=== PATIENT | female | born 1990 | race Caucasian/White ===

== ENCOUNTER 2017-10-12 09:01 | Emergency (ER) | payer MEDICAID ==
--- NOTE | 2017-10-12 09:24 | ER Document Report ---
ED General - General Chief Complaint: Lower Abdominal Pain Stated Complaint: ABDOMINAL PAIN Time Seen by Provider: 10/12/17 09:21 TRAVEL OUTSIDE OF THE [place] IN LAST 30 DAYS: No - Related Data Allergies/Adverse Reactions: No Known Allergies Allergy (Verified 10/12/17 09:07) Past Medical History - Social History Family History: Reviewed & Not Pertinent Neurological Medical History: Reports: Hx Seizures - Most recent in 2008 Renal/ Medical History: Reports: Hx Kidney Stones - Immunizations Hx Diphtheria, Pertussis, Tetanus Vaccination: No Physical Exam - Vital signs Vitals: Temp Pulse Resp BP Pulse Ox 97.9 F 88 19 140/92 H 99 10/12/17 09:05 10/12/17 09:05 10/12/17 09:05 10/12/17 09:05 10/12/17 09:05 Course - Vital Signs Vital signs: Temp Pulse Resp BP Pulse Ox 97.9 F 88 19 140/92 H 99 10/12/17 09:05 10/12/17 09:05 10/12/17 09:05 10/12/17 09:05 10/12/17 09:05
[2017-10-12] MEDS ORDERED: KETOROLAC TROMETHAMINE 60 MG/2 ML SDV IM ONE (09:28)
--- NOTE | 2017-10-12 09:30 | ER Document Report ---
ED Medical Screen (RME) - General Chief Complaint: Lower Abdominal Pain Stated Complaint: ABDOMINAL PAIN Time Seen by Provider: 10/12/17 09:21 Notes: 27-year-old female complaining of 3 days of pain that started as right flank pain is now lower abdominal pain cramping in nature associated with nausea but denies any fevers or diarrhea. Thinks it felt like her previous kidney stones now she is not sure. Patient has an IUD. TRAVEL OUTSIDE OF THE [place] IN LAST 30 DAYS: No - Related Data Allergies/Adverse Reactions: No Known Allergies Allergy (Verified 10/12/17 09:07) Past Medical History - Social History Cigarette use (# per day): No Chew tobacco use (# tins/day): No Frequency of alcohol use: None Drug Abuse: None Neurological Medical History: Reports: Hx Seizures - Most recent in 2008 Renal/ Medical History: Reports: Hx Kidney Stones. Denies: Hx Peritoneal Dialysis - Immunizations Hx Diphtheria, Pertussis, Tetanus Vaccination: No Review of Systems - Review of Systems Constitutional: No symptoms reported Gastrointestinal: See HPI Genitourinary: See HPI Physical Exam - Vital signs Vitals: Temp Pulse Resp BP Pulse Ox 97.9 F 88 19 140/92 H 99 10/12/17 09:05 10/12/17 09:05 10/12/17 09:05 10/12/17 09:05 10/12/17 09:05 - Notes Notes: Abdominal mild right lower quadrant abdominal tenderness palpation Heart regular rate and rhythm no murmurs gallops or rubs Lungs clear to auscultation bilaterally. Course - Vital Signs Vital signs: Temp Pulse Resp BP Pulse Ox 97.9 F 88 19 140/92 H 99 10/12/17 09:05 10/12/17 09:05 10/12/17 09:05 10/12/17 09:05 10/12/17 09:05
[2017-10-12 10:02] LABS: ABSOLUTE EOSINOPHILS # (AUTO) 0.2 10^3/uL (0.0-0.6); ABSOLUTE LYMPHOCYTES (AUTO) 2.1 10^3/uL (0.5-4.7); ABSOLUTE MONOCYTES (AUTO) 0.7 10^3/uL (0.1-1.4); ABSOLUTE NEUT (AUTO) 5.3 10^3/uL (1.7-8.2); BASOPHILS % (AUTO) 0.5 % (0-2); EOSINOPHILS % (AUTO) 1.9 % (0-6); HEMATOCRIT 41.8 % (36.0-47.0); HEMOGLOBIN 14.8 g/dL (12.0-15.5); HGB HCT DIFFERENCE 2.6; LYMPHOCYTES % (AUTO) 24.7 % (13-45); MEAN CORPUSCULAR HEMOGLOBIN 32.8 pg (27.0-33.4); MEAN CORPUSCULAR HGB CONC 35.4 g/dL (32.0-36.0); MEAN CORPUSCULAR VOLUME 93 fl (80-97); MONOCYTES % (AUTO) 8.7 % (3-13); SEGMENTED NEUTROPHILS % (AUTO) 64.2 % (42-78); WHITE BLOOD COUNT 8.3 10^3/uL (4.0-10.5)
[2017-10-12 10:03] LABS: APPEARANCE,URINE CLOUDY; BILIRUBIN,URINE NEGATIVE (NEGATIVE); GLUCOSE, URINE NEGATIVE (NEGATIVE); KETONES,URINE NEGATIVE (NEGATIVE); LEUKOCYTE ESTERASE,URINE NEGATIVE (NEGATIVE); NITRITE,URINE NEGATIVE (NEGATIVE); PROTEIN,URINE 100 mg/dL (NEGATIVE); URINE SPECIFIC GRAVITY 1.032; UROBILINOGEN,URINE NEGATIVE mg/dL (<2.0)
[2017-10-12 10:27] LABS: ALANINE AMINOTRANSFERASE 40 U/L (9-52); ALBUMIN 4.4 g/dL (3.5-5.0); ALKALINE PHOSPHATASE 90 U/L (38-126); ANION GAP 14 (5-19); ASPARTATE AMINO TRANSFERASE 24 U/L (14-36); BILIRUBIN,DIRECT 0.3 mg/dL (0.0-0.4); BILIRUBIN,TOTAL 0.5 mg/dL (0.2-1.3); BLOOD UREA NITROGEN 11 mg/dL (7-20); CALCIUM 8.9 mg/dL (8.4-10.2); CARBON DIOXIDE 24 mmol/L (22-30); CHLORIDE 107 mmol/L (98-107); CREATININE RESULT 0.77 mg/dL (0.52-1.25); GLUCOSE 79 mg/dL (75-110); POTASSIUM 4.3 mmol/L (3.6-5.0); SODIUM 144.5 mmol/L (137-145); TOTAL PROTEIN 6.9 g/dL (6.3-8.2)
--- NOTE | 2017-10-12 11:22 | ER Document Report ---
ED GI/ - General Chief Complaint: Lower Abdominal Pain Stated Complaint: ABDOMINAL PAIN Time Seen by Provider: 10/12/17 09:21 Mode of Arrival: Ambulatory Information source: Patient Notes: 27-year-old female complaining of right flank pain for 3 days, sudden onset, severe, sharp, it radiated to her right lower quadrant and into her vagina recently. No vaginal discharge or odor. History of kidney stones most recently 5 mm January 2016 when she was 8 months . She was in the hospital for 3 days and she finally passed it on her own. No vaginal bleeding. No dysuria frequency or urgency. No fever or chills. There is microscopic blood in urine today. TRAVEL OUTSIDE OF THE [place] IN LAST 30 DAYS: No - Related Data Allergies/Adverse Reactions: No Known Allergies Allergy (Verified 10/12/17 09:07) Past Medical History - General Information source: Patient - Social History Smoking Status: Never Smoker Cigarette use (# per day): No Chew tobacco use (# tins/day): No Frequency of alcohol use: None Drug Abuse: None Lives with: Spouse/Significant other Family History: Reviewed & Not Pertinent Patient has suicidal ideation: No Patient has homicidal ideation: No Neurological Medical History: Reports: Hx Seizures - Most recent in 2008 Renal/ Medical History: Reports: Hx Kidney Stones. Denies: Hx Peritoneal Dialysis Surgical Hx: Negative - Immunizations Hx Diphtheria, Pertussis, Tetanus Vaccination: No Review of Systems - Review of Systems Constitutional: No symptoms reported EENT: No symptoms reported Cardiovascular: No symptoms reported Respiratory: No symptoms reported Gastrointestinal: No symptoms reported Genitourinary: See HPI Female Genitourinary: No symptoms reported Musculoskeletal: See HPI Skin: No symptoms reported Hematologic/Lymphatic: No symptoms reported Neurological/Psychological: No symptoms reported Physical Exam - Vital signs Vitals: Temp Pulse Resp BP Pulse Ox 97.9 F 88 19 140/92 H 99 10/12/17 09:05 10/12/17 09:05 10/12/17 09:05 10/12/17 09:05 10/12/17 09:05 Interpretation: Normal - General General appearance: Appears well, Alert - HEENT Head: Normocephalic, Atraumatic Eyes: Normal Pupils: PERRL Neck: Supple. No: Lymphadenopathy - Respiratory Respiratory status: No respiratory distress Chest status: Nontender Breath sounds: Normal Chest palpation: Normal - Cardiovascular Rhythm: Regular Heart sounds: Normal auscultation Murmur: No - Abdominal Inspection: Normal Distension: No distension Bowel sounds: Normal Tenderness: Tender - right pelvis Organomegaly: No organomegaly - Back Back: Normal, Nontender. No: CVA tenderness - Extremities General upper extremity: Normal inspection, Nontender, Normal color, Normal ROM , Normal temperature General lower extremity: Normal inspection, Nontender, Normal color, Normal ROM , Normal temperature, Normal weight bearing. No: Arvind's sign - Neurological Neuro grossly intact: Yes Cognition: Normal Orientation: AAOx4 [place] Coma Scale Eye Opening: Spontaneous [place] Coma Scale Verbal: Oriented [place] Coma Scale Motor: Obeys Commands [place] Coma Scale Total: 15 Speech: Normal Motor strength normal: LUE, RUE, LLE, RLE Sensory: Normal - Psychological Associated symptoms: Normal affect, Normal mood - Skin Skin Temperature: Warm Skin Moisture: Dry Skin Color: Normal Skin irregularity: negative: Rash Course - Re-evaluation Re-evalutation: 10/12/17 13:01 no hydronephrosis, no uti, tx as presumed uretal stone Brittney OK with that. - Vital Signs Vital signs: Temp Pulse Resp BP Pulse Ox 97.9 F 88 19 140/92 H 99 10/12/17 09:05 10/12/17 09:05 10/12/17 09:05 10/12/17 09:05 10/12/17 09:05 - Laboratory Result Diagrams: 10/12/17 09:35 10/12/17 09:35 Laboratory results interpreted by me: 10/12/17 09:35 Urine Protein 100 H Urine Blood LARGE H Discharge - Discharge Clinical Impression: Flank pain, RLQ/pelvis pain Hematuria Qualifiers: Hematuria type: unspecified type Qualified Code(s): R31.9 - Hematuria, unspecified Condition: Good Disposition: HOME, SELF-CARE Instructions: Abdominal Pain ([facility]), Toradol Injection ([facility]), Hematuria ([facility]), Kidney Stone ([facility]), Ibuprofen (General) ([facility]), Acetaminophen, Flomax ([facility]) Additional Instructions: plenty of fluids to er if worse see the urologist Please complete the patient satisfaction survey if you get one, and return it.. If you do not receive a survey, then you can go to the [facility] website, [email or web address] and place your comments about your very good care. Thank you very much. It was a pleasure being your medical provider today. Prescriptions: Ibuprofen [Motrin 800 mg Tablet] 800 mg PO Q8HP PRN #30 tablet PRN Reason: Tamsulosin HCl [Flomax 0.4 mg Cap.sr] 0.4 mg PO DAILY #6 cap.sr.24h Referrals: CESARIO LYNNE MD [[facility]] - Follow up as needed
--- NOTE | 2017-10-12 12:19 | RADIOLOGY REPORT (SQ) ---
EXAM DESCRIPTION: U/S RETROPERITON (RENAL/AORTA) COMPLETED DATE/TIME: 10/12/2017 12:07 pm REASON FOR STUDY: ? hydro , hx stones COMPARISON: [id number] Abdominal ultrasound 02/27/2016, 02/25/2016 TECHNIQUE: Dynamic and static grayscale images acquired of the kidneys and bladder and recorded on P ACS. Additional selected color Doppler and spectral images recorded. LIMITATIONS: None. FINDINGS: RIGHT KIDNEY: Normal size, 13.6 cm in length. Normal echogenicity. No solid or suspicious masses. Very mild prominence of the renal pelvis without talus seal dilatation, likely an extrarenal pelvis. No significant hydronephrosis. No calcifications. LEFT KIDNEY: Normal size, 12.8 cm in length. Normal echogenicity. No solid or suspicious masses. No hydronephrosis. No calcifications. BLADDER: No masses. OTHER FINDINGS: No other significant finding. IMPRESSION: Hydronephrosis seen during February 2016 has resolved. There is a borderline prominent extrarenal pelvis on the right. No blunting of the calices. Bilateral renal ultrasound and bladder ultrasound is otherwise unremarkable TECHNICAL DOCUMENTATION: JOB ID: [id number]- All Rights Reserved
[2017-10-12] MEDS ORDERED: TAMSULOSIN HCL 0.4 MG CAP.SR.24H PO ONE (12:59)
[2017-10-12 13:20] VITALS: BP 124/82
== END 2017-10-12 13:22 | disposition home or self-care (01) ==
LOC: ER 09:01
DX: R10.31 Right lower quadrant pain (principal); R10.2 Pelvic and perineal pain; R31.9 Hematuria, unspecified
CPT/HCPCS: 99284; 96372; 36415; 87086; 85025; 81025; 80053; 81001; 76770; J1885

== ENCOUNTER 2017-10-13 14:27 | Emergency (ER) | payer SELFPAY ==
[2017-10-13] MEDS ORDERED: ONDANSETRON HCL INJ/PF 4 MG/2 ML SDV IV ONE (14:46)
[2017-10-13] MEDS ORDERED: KETOROLAC TROMETHAMINE INJ/PF 30 MG/1 ML SDV IV ONE (14:46)
[2017-10-13] MEDS ORDERED: NORMAL SALINE 1000 ML 1,000 ML IV ONE (14:46)
--- NOTE | 2017-10-13 14:48 | ER Document Report ---
ED Medical Screen (RME) - General Chief Complaint: Flank Pain Stated Complaint: ABDOMINAL PAIN Time Seen by Provider: 10/13/17 14:46 Mode of Arrival: Wheelchair Information source: Patient TRAVEL OUTSIDE OF THE [place] IN LAST 30 DAYS: No - HPI Patient complains to provider of: flank pain Onset: Other - Pt with h/o kidney stones with c/o R flank pain for the past 3-4 days with N/V - Related Data Allergies/Adverse Reactions: No Known Allergies Allergy (Verified 10/13/17 14:35) Past Medical History - Social History Chew tobacco use (# tins/day): No Frequency of alcohol use: None Drug Abuse: None Neurological Medical History: Reports: Hx Seizures - Most recent in 2008 Renal/ Medical History: Reports: Hx Kidney Stones. Denies: Hx Peritoneal Dialysis - Immunizations Hx Diphtheria, Pertussis, Tetanus Vaccination: No Physical Exam - Vital signs Vitals: Temp Pulse Resp BP Pulse Ox 97.4 F 85 20 168/99 H 97 10/13/17 14:36 10/13/17 14:36 10/13/17 14:36 10/13/17 14:36 10/13/17 14:36 Course - Vital Signs Vital signs: Temp Pulse Resp BP Pulse Ox 97.4 F 85 20 168/99 H 97 10/13/17 14:36 10/13/17 14:36 10/13/17 14:36 10/13/17 14:36 10/13/17 14:36
--- NOTE | 2017-10-13 16:18 | RADIOLOGY REPORT (SQ) ---
EXAM DESCRIPTION: CT LTD RENAL STONE PROTOCOL ON COMPLETED DATE/TIME: 10/13/2017 3:49 pm REASON FOR STUDY: R flank pain COMPARISON: None. TECHNIQUE: CT scan of the abdomen and pelvis performed without intravenous or oral contrast. Images reviewed with lung, soft tissue, and bone windows. Reconstructed coronal and sagittal MPR images revi ewed. All images stored on PACS. All CT scanners at this facility use dose modulation, iterative reconstruction, and/or weight based d osing when appropriate to reduce radiation dose to as low as reasonably achievable (ALARA). [facility]: Dose Right [facility]: CareDose [facility]: Dose Right [facility]: Teradose 4D [facility]: Smart [employer] RADIATION DOSE: Up-to-date CT equipment and radiation dose reduction techniques were employed. CTDIv ol: 7.8 mGy. DLP: 422 mGy-cm.mGy. LIMITATIONS: None. FINDINGS: LOWER CHEST: No significant findings. No nodules or infiltrates. NON-CONTRASTED LIVER, SPLEEN, ADRENALS: Evaluation limited by lack of IV contrast. No identified sign ificant masses. PANCREAS: No masses. No peripancreatic inflammatory changes. GALLBLADDER: No identified stones by CT criteria. No inflammatory changes to suggest cholecystitis. RIGHT KIDNEY AND URETER: No suspicious masses. Assessment limited by lack of IV contrast. Small yonny yceal calculi. 5 mm calculus in the distal ureter at the ureteral vesicular junction. Moderate hyd ronephrosis and hydroureter. LEFT KIDNEY AND URETER: No suspicious masses. Assessment limited by lack of IV contrast. No signifi cant calcifications. No hydronephrosis or hydroureter. AORTA AND RETROPERITONEUM: No aneurysm. No retroperitoneal masses or adenopathy. BOWEL AND PERITONEAL CAVITY: No obvious masses or inflammatory changes. No free fluid. APPENDIX: Normal. PELVIS, BLADDER, AND ABDOMINAL WALL:No abnormal masses. IUD in the uterus. No free fluid. Bladder n ormal. BONES: No significant findings. OTHER: No other significant finding. IMPRESSION: 1. 5 MM CALCULUS IN THE DISTAL RIGHT URETER AT THE URETERAL VESICULAR JUNCTION WITH MODERATE OBSTRUCT ION. SMALL CALYCEAL CALCULI IN THE RIGHT KIDNEY. 2. NO OTHER SIGNIFICANT OR ACUTE PROCESS IN THE ABDOMEN OR PELVIS. COMMENT: Quality ID # [id number]: Final reports with documentation of one or more dose reduction techniques (e.g., Automated exposure control, adjustment of the mA and/or kV according to patient size, use of iterative reconstruction technique) TECHNICAL DOCUMENTATION: JOB ID: [id number] [employer] [employer]- All Rights Reserved
[2017-10-13 16:33] LABS: APPEARANCE,URINE SLIGHTLY-CLOUDY; BILIRUBIN,URINE NEGATIVE (NEGATIVE); GLUCOSE, URINE NEGATIVE (NEGATIVE); KETONES,URINE NEGATIVE (NEGATIVE); LEUKOCYTE ESTERASE,URINE MODERATE (NEGATIVE); NITRITE,URINE NEGATIVE (NEGATIVE); PROTEIN,URINE NEGATIVE (NEGATIVE); URINE SPECIFIC GRAVITY 1.025; UROBILINOGEN,URINE NEGATIVE mg/dL (<2.0)
--- NOTE | 2017-10-13 17:10 | ER Document Report ---
ED GI/ - General Chief Complaint: Flank Pain Stated Complaint: ABDOMINAL PAIN Time Seen by Provider: 10/13/17 14:46 Mode of Arrival: Wheelchair Information source: Patient TRAVEL OUTSIDE OF THE [place] IN LAST 30 DAYS: No - HPI Patient complains to provider of: Flank pain Onset: Other - 4 days Timing/Duration: Persistent Quality of pain: Sharp Severity at maximum: Moderate Severity in ED: None Location: Right flank Associated symptoms: Nausea, Vomiting Similar symptoms previously: Yes Recently seen / treated by doctor: Yes Notes: 10/13/17 17:07 Patient is a 27-year-old female presenting to the emergency room complaining of right-sided flank pain 4 days, with hematuria, and one episode of vomiting today, she reports a history of kidney stones with similar symptoms previously, was seen in this department yesterday and diagnosed with a kidney stone, started on ibuprofen and Flomax, she reports her symptoms worsen this morning - Related Data Allergies/Adverse Reactions: No Known Allergies Allergy (Verified 10/13/17 14:35) Past Medical History - General Information source: Patient - Social History Smoking Status: Never Smoker Chew tobacco use (# tins/day): No Frequency of alcohol use: None Drug Abuse: None Family History: Reviewed & Not Pertinent Patient has suicidal ideation: No Patient has homicidal ideation: No Neurological Medical History: Reports: Hx Seizures - Most recent in 2008 Renal/ Medical History: Reports: Hx Kidney Stones. Denies: Hx Peritoneal Dialysis - Immunizations Hx Diphtheria, Pertussis, Tetanus Vaccination: No Review of Systems - Review of Systems Constitutional: No symptoms reported EENT: No symptoms reported Cardiovascular: No symptoms reported Respiratory: No symptoms reported Gastrointestinal: No symptoms reported Genitourinary: See HPI Female Genitourinary: No symptoms reported Musculoskeletal: No symptoms reported Skin: No symptoms reported Hematologic/Lymphatic: No symptoms reported Neurological/Psychological: No symptoms reported -: Yes All other systems reviewed and negative Physical Exam - Vital signs Vitals: Temp Pulse Resp BP Pulse Ox 97.4 F 85 20 168/99 H 97 10/13/17 14:36 10/13/17 14:36 10/13/17 14:36 10/13/17 14:36 10/13/17 14:36 Interpretation: Normal - General General appearance: Appears well, Alert - HEENT Head: Normocephalic, Atraumatic Eyes: Normal Pupils: PERRL - Respiratory Respiratory status: No respiratory distress Chest status: Nontender Breath sounds: Normal Chest palpation: Normal - Cardiovascular Rhythm: Regular Heart sounds: Normal auscultation Murmur: No - Abdominal Inspection: Normal Distension: No distension Bowel sounds: Normal Tenderness: Nontender Organomegaly: No organomegaly - Back Back: Normal, Nontender - Extremities General upper extremity: Normal inspection, Nontender, Normal color, Normal ROM , Normal temperature General lower extremity: Normal inspection, Nontender, Normal color, Normal ROM , Normal temperature, Normal weight bearing. No: Arvind's sign - Neurological Neuro grossly intact: Yes Cognition: Normal Orientation: AAOx4 [place] Coma Scale Eye Opening: Spontaneous [place] Coma Scale Verbal: Oriented [place] Coma Scale Motor: Obeys Commands [place] Coma Scale Total: 15 Speech: Normal Motor strength normal: LUE, RUE, LLE, RLE Sensory: Normal - Psychological Associated symptoms: Normal affect, Normal mood - Skin Skin Temperature: Warm Skin Moisture: Dry Skin Color: Normal Course - Re-evaluation Re-evalutation: 10/13/17 17:08 Lab and imaging findings were discussed with patient at bedside which are consistent with a 5 mm stone in the right UVJ, no symptoms at time of my initial exam, she has received IV fluids and medications, patient will be discharged with instructions for follow-up and advised to return if any additional concerns, patient acknowledges understanding and agreement with this plan - Vital Signs Vital signs: Temp Pulse Resp BP Pulse Ox 97.4 F 85 20 168/99 H 97 10/13/17 14:36 10/13/17 14:36 10/13/17 14:36 10/13/17 14:36 10/13/17 14:36 - Laboratory Laboratory results interpreted by me: 10/13/17 16:09 Urine Blood LARGE H Ur Leukocyte Esterase MODERATE H - Diagnostic Test Radiology reviewed: Image reviewed, Reports reviewed Discharge - Discharge Clinical Impression: Kidney stone on right side Condition: Stable Disposition: HOME, SELF-CARE Instructions: Kidney Stone ([facility]) Additional Instructions: Follow up with your primary care provider and a urologist in one to 2 days. Return to the emergency room immediately if symptoms worsen or any additional concerns. Prescriptions: Cephalexin Monohydrate [Keflex 500 mg Capsule] 500 mg PO BID #20 capsule Hydrocodone/Acetaminophen [Hydrocodon-Acetaminophen 5-325] 1 each PO Q6 #20 tablet Ondansetron [Zofran Odt 4 mg Tablet] 1 - 2 tab PO Q4H #10 tab.rapdis Referrals: EVIN SHEN II, MD [[facility]] - Follow up as needed LAUREN CASTELAN MD [NO LOCAL MD] - Follow up as needed
[2017-10-13 17:27] VITALS: BP 126/64
== END 2017-10-13 17:27 | disposition home or self-care (01) ==
LOC: ER 14:27
DX: N20.0 Calculus of kidney (principal); R10.9 Unspecified abdominal pain; R31.9 Hematuria, unspecified; R11.10 Vomiting, unspecified
CPT/HCPCS: 99284; 96361; 96374; 96375; 81025; 81001; 76380; J1885; J2405; J7030

== ENCOUNTER 2019-06-03 12:39 | Emergency (ER) | payer MEDICAID ==
[2019-06-03] MEDS ORDERED: ONDANSETRON HCL INJ/PF 4 MG/2 ML SDV IV ONE (12:46)
[2019-06-03] MEDS ORDERED: KETOROLAC TROMETHAMINE INJ/PF 30 MG/1 ML SDV IV ONE (12:46)
--- NOTE | 2019-06-03 12:47 | ER Document Report ---
ED Medical Screen (RME) - General Chief Complaint: Possible Kidney Stone Stated Complaint: ABDOMINAL PAIN Time Seen by Provider: 06/03/19 12:43 Mode of Arrival: Ambulatory Information source: Patient Notes: Patient presents complaining of right flank pain that radiates to right lower quadrant and pelvic area. Patient reports some dysuria today with nausea. No vomiting diarrhea fever. Patient denies any vaginal bleeding or discharge. Patient is concerned about possible kidney stone. I have greeted and performed a rapid initial assessment of this patient. A comprehensive ED assessment and evaluation of the patient, analysis of test results and completion of the medical decision making process will be conducted by additional ED providers. TRAVEL OUTSIDE OF THE [place] IN LAST 30 DAYS: No - Related Data Allergies/Adverse Reactions: No Known Allergies Allergy (Verified 06/03/19 12:40) Past Medical History Neurological Medical History: Reports: Hx Seizures - Most recent in 2008 Renal/ Medical History: Reports: Hx Kidney Stones. Denies: Hx Peritoneal Dialysis - Immunizations Hx Diphtheria, Pertussis, Tetanus Vaccination: No Physical Exam - Vital signs Vitals: Temp Pulse Resp BP Pulse Ox 97.9 F 89 18 152/85 H 98 06/03/19 12:43 06/03/19 12:43 06/03/19 12:43 06/03/19 12:43 06/03/19 12:43 - Back Back: CVA tenderness - Right Course - Vital Signs Vital signs: Temp Pulse Resp BP Pulse Ox 97.9 F 89 18 152/85 H 98 06/03/19 12:43 06/03/19 12:43 06/03/19 12:43 06/03/19 12:43 06/03/19 12:43
[2019-06-03 13:15] LABS: ABSOLUTE BASOPHILS # (AUTO) 0.1 10^3/uL (0.0-0.2); ABSOLUTE EOSINOPHILS # (AUTO) 0.2 10^3/uL (0.0-0.6); ABSOLUTE LYMPHOCYTES (AUTO) 2.1 10^3/uL (0.5-4.7); ABSOLUTE MONOCYTES (AUTO) 0.6 10^3/uL (0.1-1.4); ABSOLUTE NEUT (AUTO) 7.6 10^3/uL (1.7-8.2); BASOPHILS % (AUTO) 0.5 % (0-2); EOSINOPHILS % (AUTO) 1.8 % (0-6); HEMATOCRIT 40.3 % (36.0-47.0); HEMOGLOBIN 14.4 g/dL (12.0-15.5); LYMPHOCYTES % (AUTO) 20.2 % (13-45); MEAN CORPUSCULAR HGB CONC 35.8 g/dL (32.0-36.0); MEAN CORPUSCULAR VOLUME 92 fl (80-97); MONOCYTES % (AUTO) 5.6 % (3-13); PLATELET COUNT 211 10^3/uL (150-450); RED BLOOD COUNT 4.36 10^6/uL (3.72-5.28); SEGMENTED NEUTROPHILS % (AUTO) 71.9 % (42-78); TOTAL CELLS COUNTED % (AUTO) 100 %; WHITE BLOOD COUNT 10.6 10^3/uL (4.0-10.5)
[2019-06-03 13:39] LABS: ALANINE AMINOTRANSFERASE 27 U/L (9-52); ALBUMIN 4.2 g/dL (3.5-5.0); ALKALINE PHOSPHATASE 99 U/L (38-126); ANION GAP 9 (5-19); ASPARTATE AMINO TRANSFERASE 27 U/L (14-36); BILIRUBIN,DIRECT 0.3 mg/dL (0.0-0.4); BILIRUBIN,TOTAL 0.7 mg/dL (0.2-1.3); BLOOD UREA NITROGEN 14 mg/dL (7-20); CALCIUM 8.9 mg/dL (8.4-10.2); CARBON DIOXIDE 25 mmol/L (22-30); CHLORIDE 106 mmol/L (98-107); GLUCOSE 96 mg/dL (75-110); TOTAL PROTEIN 6.9 g/dL (6.3-8.2)
[2019-06-03 14:19] LABS: APPEARANCE,URINE HAZY; BILIRUBIN,URINE SMALL (NEGATIVE); COLOR,URINE YELLOW; GLUCOSE, URINE NEGATIVE (NEGATIVE); KETONES,URINE NEGATIVE (NEGATIVE); PROTEIN,URINE 100 mg/dL (NEGATIVE); URINE SPECIFIC GRAVITY 1.035
[2019-06-03 14:20] LABS: LEUKOCYTE ESTERASE,URINE SMALL (NEGATIVE); NITRITE,URINE NEGATIVE (NEGATIVE)
--- NOTE | 2019-06-03 14:38 | ER Document Report ---
ED General - General Chief Complaint: Possible Kidney Stone Stated Complaint: ABDOMINAL PAIN Time Seen by Provider: 06/03/19 12:43 Primary Care Provider: HANNAH FERRARA MD [Primary Care Provider] - Follow up as needed Mode of Arrival: Ambulatory Notes: Patient is a 29-year-old female that presents to the emergency department for chief complaint of abdominal pain. Patient states the pain started 2 days ago, and has been persistent and seemingly worsening over time. The pain is located right flank and right lower quadrant, and they currently rate the pain as a 4 out of 10, and described as aching, and constant. They have had associated nausea, vomiting. Patient has a history of kidney stones and that so she is concerned about, she is had associated dysuria that started this morning as well, she denies noting any fevers at home, chills or night sweats. Denies having any associated diarrhea or constipation, denies chest pain, shortness of breath or difficulty breathing. Past Medical History: Kidney stones Past Surgical History: Dental extraction Social History: Denies tobacco, alcohol or drug use. Family History: Reviewed and noncontributory for presenting illness Allergies: Reviewed, see documented allergy list. REVIEW OF SYSTEMS: Other than noted above, the 12 point review of systems was reviewed with the patient and were negative, all pertinent findings are included in the HPI. PHYSICAL EXAMINATION: Vital signs reviewed, nursing noted reviewed. GENERAL: Well-appearing, well-nourished and appears uncomfortable HEAD: Atraumatic, normocephalic. EYES: Eyes appear normal, extraocular movements intact, sclera anicteric, conjunctiva are normal. ENT: nares patent, oropharynx clear without exudates. Moist mucous membranes. NECK: Normal range of motion, supple without lymphadenopathy LUNGS: Breath sounds clear to auscultation bilaterally and equal. No wheezes rales or rhonchi. HEART: Regular rate and rhythm without murmurs ABDOMEN: Soft, normal bowel sounds, tenderness with palpation, and the right CVA, none on the left, no significant anterior abdominal tenderness with palpation, No rebound, guarding, or rigidity. No masses appreciated. EXTREMITIES: Nontender, good range of motion, no pitting or edema. NEUROLOGICAL: No focal neurological deficits. Moves all extremities spontaneously Motor and sensory grossly intact on exam. PSYCH: Normal mood, normal affect. SKIN: Warm, Dry, normal turgor, no rashes or lesions noted on exposed skin TRAVEL OUTSIDE OF THE [place] IN LAST 30 DAYS: No - Related Data Allergies/Adverse Reactions: No Known Allergies Allergy (Verified 06/03/19 12:40) Past Medical History - General Information source: Patient - Social History Smoking Status: Never Smoker Family History: Reviewed & Not Pertinent Neurological Medical History: Reports: Hx Seizures - Most recent in 2008 Renal/ Medical History: Reports: Hx Kidney Stones. Denies: Hx Peritoneal Dialysis - Immunizations Hx Diphtheria, Pertussis, Tetanus Vaccination: No Physical Exam - Vital signs Vitals: Temp Pulse Resp BP Pulse Ox 97.9 F 89 18 152/85 H 98 06/03/19 12:43 06/03/19 12:43 06/03/19 12:43 06/03/19 12:43 06/03/19 12:43 Course - Re-evaluation Re-evalutation: Patient seen and examined vital signs reviewed. Laboratory data and/or imaging were ordered as appropriate for the patient's pr esenting symptoms and complaint, with consideration of any critical or life threatening conditions that may be associated with their obtained history and exam as noted above. Patient was treated with IVF, antiemetics and analgesics Results were reviewed when available and demonstrated CT imaging consistent with 4mm ureteral stone at the UVJ. UA was not convincing of UTI, and patient was not presenting as septic. She did have a mild leukocytosis. The patient was re-evaluated and was stable and improved. Evaluation was most consistent with ureteral stone, patient was given prescription for flomax, pain medication, and advised follow-up with urology. She was given a prescription for omnicef as well, to cover for possible early urinary infection as well. Results were discussed with the patient at this point, after careful consideration I feel that that patient can be discharged from the emergency department, the patient was educated treatments and reasons to return to the emergency department based on their presumed diagnosis as noted above, they were advised to followup with a primary care physician in 2-3 days. Patient was agreeable to plan of care. *Note is created using voice recognition software and may contain spelling, syntax or grammatical errors. Laboratory 06/03/19 06/03/19 06/03/19 12:52 12:57 12:57 WBC 10.6 H RBC 4.36 Hgb 14.4 Hct 40.3 MCV 92 MCH 33.0 MCHC 35.8 RDW 12.0 Plt Count 211 Seg Neutrophils % 71.9 Lymphocytes % 20.2 Monocytes % 5.6 Eosinophils % 1.8 Basophils % 0.5 Absolute Neutrophils 7.6 Absolute Lymphocytes 2.1 Absolute Monocytes 0.6 Absolute Eosinophils 0.2 Absolute Basophils 0.1 Sodium 140.0 Potassium 4.0 Chloride 106 Carbon Dioxide 25 Anion Gap 9 BUN 14 Creatinine 0.72 Est GFR ( Amer) > 60 Est GFR (Non-Af Amer) > 60 Glucose 96 Calcium 8.9 Total Bilirubin 0.7 Direct Bilirubin 0.3 Neonat Total Bilirubin Not Reportable Neonat Direct Bilirubin Not Reportable Neonat Indirect Bili Not Reportable AST 27 ALT 27 Alkaline Phosphatase 99 Total Protein 6.9 Albumin 4.2 Serum HCG, Qual Urine Color YELLOW Urine Appearance HAZY Urine pH 5.0 Ur Specific [place] 1.035 Urine Protein 100 H Urine Glucose (UA) NEGATIVE Urine Ketones NEGATIVE Urine Blood LARGE H Urine Nitrite NEGATIVE Urine Bilirubin SMALL H Urine Urobilinogen 2.0 H Ur Leukocyte Esterase SMALL H Urine WBC (Auto) 26 Urine RBC (Auto) 117 U Hyaline Cast (Auto) 1 Urine Bacteria (Auto) TRACE Squamous Epi Cells Auto 11 U Non-Squamous Epis Auto 1 Urine Mucus (Auto) MOD Urine Ascorbic Acid NEGATIVE 06/03/19 12:57 WBC RBC Hgb Hct MCV MCH MCHC RDW Plt Count Seg Neutrophils % Lymphocytes % Monocytes % Eosinophils % Basophils % Absolute Neutrophils Absolute Lymphocytes Absolute Monocytes Absolute Eosinophils Absolute Basophils Sodium Potassium Chloride Carbon Dioxide Anion Gap BUN Creatinine Est GFR ( Amer) Est GFR (Non-Af Amer) Glucose Calcium Total Bilirubin Direct Bilirubin Neonat Total Bilirubin Neonat Direct Bilirubin Neonat Indirect Bili AST ALT Alkaline Phosphatase Total Protein Albumin Serum HCG, Qual NEGATIVE Urine Color Urine Appearance Urine pH Ur Specific [place] Urine Protein Urine Glucose (UA) Urine Ketones Urine Blood Urine Nitrite Urine Bilirubin Urine Urobilinogen Ur Leukocyte Esterase Urine WBC (Auto) Urine RBC (Auto) U Hyaline Cast (Auto) Urine Bacteria (Auto) Squamous Epi Cells Auto U Non-Squamous Epis Auto Urine Mucus (Auto) Urine Ascorbic Acid Abdomen/Pelvis CT 06/03/19 14:28 IMPRESSION: 4 mm distal right ureteral calculus at the ureterovesical junction. Mild right hydronephrosis and hydroureter - Vital Signs Vital signs: Temp Pulse Resp BP Pulse Ox 98.2 F 86 15 137/93 H 98 06/03/19 16:53 06/03/19 16:53 06/03/19 16:53 06/03/19 16:53 06/03/19 12:43 - Laboratory Result Diagrams: 06/03/19 12:57 06/03/19 12:57 Laboratory results interpreted by me: 06/03/19 06/03/19 12:52 12:57 WBC 10.6 H Urine Protein 100 H Urine Blood LARGE H Urine Bilirubin SMALL H Urine Urobilinogen 2.0 H Ur Leukocyte Esterase SMALL H Discharge - Discharge Clinical Impression: Kidney stone Condition: Stable Disposition: HOME, SELF-CARE Instructions: Kidney Stone (OM) Additional Instructions: Please follow-up with 1 of the urology groups, call for an appointment today or tomorrow. If you develop fever, or worsening pain, vomiting, do not hesitate to return to the emergency department immediately. [email or web address] [address] [email or web address] [email or web address] [facility] Prescriptions: RX: Cefdinir 300 mg PO BID #14 capsule Hydrocodone/Acetaminophen [[place] 5-325 Tablet] 1 each PO Q6H PRN #10 tablet PRN Reason: flank pain Ondansetron [Zofran Odt 4 mg Tablet] 1 tab PO Q8H PRN #15 tab.rapdis PRN Reason: For Nausea/Vomiting Tamsulosin HCl [Flomax 0.4 mg Cap.sr] 0.4 mg PO DAILY #7 cap.sr.24h Forms: Return to Work Referrals: HANNAH FERRARA MD [Primary Care Provider] - Follow up as needed
[2019-06-03] MEDS ORDERED: NORMAL SALINE 1000 ML 1,000 ML IV ONE (14:55)
[2019-06-03] MEDS ORDERED: CEFTRIAXONE 1 GM/D5W RTU 1 GM/50 ML RTUPB IV ONE (14:55)
--- NOTE | 2019-06-03 15:07 | RADIOLOGY REPORT (SQ) ---
EXAM DESCRIPTION: CT ABD/PELVIS NO ORAL OR IV COMPLETED DATE/TIME: 06/03/2019 2:55 pm REASON FOR STUDY: right flank pain COMPARISON: CT abdomen pelvis 10/13/2017 TECHNIQUE: CT scan of the abdomen and pelvis performed without intravenous or oral contrast. Images reviewed with lung, soft tissue, and bone windows. Reconstructed coronal and sagittal MPR images revi ewed. All images stored on PACS. All CT scanners at this facility use dose modulation, iterative reconstruction, and/or weight based d osing when appropriate to reduce radiation dose to as low as reasonably achievable (ALARA). [facility]: Dose Right [facility]: CareDose [facility]: Dose Right [facility]: Teradose 4D [facility]: Smart [employer] RADIATION DOSE: CT Rad equipment meets quality standard of care and radiation dose reduction techniq ues were employed. CTDIvol: 6.1 mGy. DLP: 345 mGy-cm.mGy. LIMITATIONS: None. FINDINGS: At the right ureterovesical junction, a 4 mm calculus is present on axial image 81 and cor onal image 35. This causes mild right-sided hydronephrosis and hydroureter. No other right-sided ur eteral stones are present. Right kidney demonstrates an intrarenal nonobstructive lower pole 3 to 4 mm calculus. No right renal cysts or masses. LOWER CHEST: No significant findings. No nodules or infiltrates. NON-CONTRASTED LIVER, SPLEEN, ADRENALS: Evaluation limited by lack of IV contrast. No identified sign ificant masses. PANCREAS: No masses. No peripancreatic inflammatory changes. GALLBLADDER: No identified stones by CT criteria. No inflammatory changes to suggest cholecystitis. RIGHT KIDNEY AND URETER: As above LEFT KIDNEY AND URETER: No suspicious masses. Assessment limited by lack of IV contrast. No signifi cant calcifications. No hydronephrosis or hydroureter. AORTA AND RETROPERITONEUM: No aneurysm. No retroperitoneal masses or adenopathy. BOWEL AND PERITONEAL CAVITY: No obvious masses or inflammatory changes. No free fluid. APPENDIX: Normal. PELVIS, BLADDER, AND ABDOMINAL WALL:No abnormal masses. No free fluid. Bladder normal. Normal size f emale pelvic organs. IUD in the uterus. BONES: No significant findings. OTHER: No other significant finding. IMPRESSION: 4 mm distal right ureteral calculus at the ureterovesical junction. Mild right hydronep hrosis and hydroureter COMMENT: Quality ID # [id number]: Final reports with documentation of one or more dose reduction techniques (e.g., Automated exposure control, adjustment of the mA and/or kV according to patient size, use of iterative reconstruction technique) TECHNICAL DOCUMENTATION: JOB ID: [id number] [email or web address]- All Rights Reserved Reading location - IP/workstation name: [email or web address]
[2019-06-03] MEDS ORDERED: TAMSULOSIN HCL 0.4 MG CAP.SR.24H PO ONE (15:11)
[2019-06-03 16:57] VITALS: BP 137/93
== END 2019-06-03 16:53 | disposition home or self-care (01) ==
LOC: ER 12:39
DX: N20.0 Calculus of kidney (principal); R10.9 Unspecified abdominal pain; R10.31 Right lower quadrant pain; R30.0 Dysuria
CPT/HCPCS: 99284; 96375; 96365; 36415; 84703; 85025; 80053; 81001; 74176; J1885; J3490; J2405; J7030; J0696